=== PATIENT | female | born 1955 | race Caucasian/White ===

== ENCOUNTER 2016-11-08 14:07 | Day surgery (SDC) | payer BC ==
[~2016-11-08 14:07] MED LIST: LIDOCAINE 2% MDV (20MG/ML) 20ML VIAL IV ONE; PROPOFOL 10 MG/ML VIAL IV ONE
--- NOTE | 2016-11-12 15:10 | Operative Note ---
DATE OF SURGERY: 11/08/2016 REFERRING PROVIDER: Bennie Esquivel MD, FACP PREOPERATIVE DIAGNOSIS: Personal history of polyps. POSTOPERATIVE DIAGNOSES: 1. Sigmoid polyps. 2. Sigmoid diverticulosis. 3. Transverse colon polyp. OPERATION: COLONOSCOPY with cold snare and cold forceps polypectomies. Preparation Quality: Good. Estimated Blood Loss: Minimal. Samples Obtained: Includes sigmoid polyps x 2 and transverse polyp. PROCEDURE: After informed consent was obtained, the patient was placed in the left lateral decubitus position in the endoscopy suite, sedated and monitored by the Department of Anesthesia. Digital rectal exam was unremarkable. A well-lubricated PCF-180 colonoscope was inserted into the rectum and advanced to the cecum. The ileocecal valve and appendiceal orifice were identified. The cecum and ascending colon were unremarkable. A diminutive transverse colon polyp was identified and removed with a cold forceps. Minimal bleeding was noted. The polyp was retrieved without difficulty. The remainder of the transverse colon and descending colon, were unremarkable. The sigmoid colon demonstrated 2 sessile polyps which were approximately 4-5 mm in diameter. Each removed with a cold snare. Minimal bleeding was noted. The polyps were retrieved without difficulty. In addition, there was moderate diverticular changes of the sigmoid colon. The rectum was unremarkable in forward and J-turn views. The endoscope was straightened, the rectal ampulla deflated and the endoscope was removed. RECOMMENDATIONS: Patient should follow a high-fiber diet. Consider the use of a fiber supplement such as Citrucel or Benefiber. She should have a repeat colonoscopy in 3-5 years pending tissue histology. As always, thank you for allowing me to participate in the health care of your patients. Amado Guillen DO CC: BENNIE ESQUIVEL MD, FACP [facility]
== END 2016-11-08 16:30 | disposition home or self-care (01) ==
LOC: HOP 14:07
PROVIDERS: ATTEND Internal Medicine Gastroenterology
DX: Z86.010 Personal history of colon polyps (principal); D12.3 Benign neoplasm of transverse colon; D12.5 Benign neoplasm of sigmoid colon; I10 Essential (primary) hypertension